=== PATIENT | male | born 1965 | race Caucasian/White ===

== ENCOUNTER 2023-05-15 09:24 | Emergency (ER) | payer OTHER ==
[~2023-05-15] VITALS: Ht 172.7 cm; Wt 81.6 kg
[2023-05-15] MEDS ORDERED: PREDNISONE20 M1 PO (10:40)
== END 2023-05-15 09:41 | disposition home or self-care (01) ==
LOC: ED 09:24
DX: L23.7 Allergic contact dermatitis due to plants, except food (principal)